=== PATIENT | male | born 1955 | race Hispanic/Latino ===

== ENCOUNTER 2021-05-30 12:11 | Emergency (ER) | payer SELFPAY ==
[2021-05-30 12:30] VITALS: BP 96/64
--- NOTE | 2021-05-30 13:04 | Emergency Department Report ---
ED Fall HPI - General Chief Complaint: Fall Stated Complaint: FALL Time Seen by Provider: 05/30/21 12:48 Source: patient Mode of arrival: Wheelchair Limitations: Physical Limitation - History of Present Illness Initial Comments: 65-year male with Parkinson's disease and hypertension presents to the hospital with complaints of neck pain for 5 days. Patient has a history of frequent falls for the past year secondary to Parkinson's disease. Patient states he ambulates with a walker and follows multiple times a day every day secondary to uncontrollable body movements. He states he was recently seen at a hospital in [facility] for pain with relief. 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 This is his [facility] visit to [facility]. As per [facility] his medications include glycopyrrolate 1 tab twice daily Lisinopril 5 mg daily Tamsulosin HCL 0.4 mg daily Sertraline HCl 100 mg daily Carbidopa/levodopa 25/102 tablets 4 times a day Clonazepam 0.5 mg nightly Amantadine HCL 100 mg twice daily Sildenafil citrate 1 tablet daily Tylenol #3 300-30 mg every 6 hours Patient states he is overdue for his carbidopa/ levodopa dose - Related Data Previous Rx's Medication Instructions Recorded Last Taken Type HYDROcodone/APAP 5-325 [Wellington 1 each PO Q6HR PRN #10 tablet 05/30/21 Unknown Rx 5/325] Allergies Allergy/AdvReac Type Severity Reaction Status Date / Time quetiapine [From Seroquel] Allergy Unknown Verified 05/30/21 12:59 ED Review of Systems ROS: Stated complaint: FALL Other details as noted in HPI Comment: All other systems reviewed and negative ED Past Medical Hx - Medications Home Medications: Home Medications Medication Instructions Recorded Confirmed Last Taken Type HYDROcodone/APAP 5-325 [Wellington 1 each PO Q6HR PRN #10 tablet 05/30/21 Unknown Rx 5/325] ED Physical Exam - General Limitations: Physical Limitation - Other Other exam information: General: No acute distress Head: Atraumatic, no hematoma Eyes: normal appearance ENT: Moist mucous membranes Neck: Normal appearance, cervical tenderness palpation. Voluntary movement particularly at the neck note Chest: Clear to auscultation bilaterally CV: Regular rate and rhythm Abdomen: Soft, normal bowel sounds, nontender, nondistended, no rebound or guarding Back: Normal inspection Extremity: Normal inspection, full range of motion, uncontrollable muscle movements noted Neuro: Alert O x 3, no facial asymmetry, speech clear, no gross motor sensory deficit Psych: Appropriate behavior Skin: Superficial abrasions to anterior knee ED Course Vital Signs 05/30/21 12:29 Temperature 98.4 F Pulse Rate 77 Respiratory 14 Rate Blood Pressure 96/64 [Right] O2 Sat by Pulse 99 Oximetry ED Medical Decision Making - Radiology Data Radiology results: report reviewed CT HEAD WITHOUT CONTRAST INDICATION / CLINICAL INFORMATION: fall, head injury. TECHNIQUE: All CT scans at this location are performed using CT dose reduction for ALARA by means of automated exposure control. COMPARISON: None available. Limitations: Patient was moving his head throughout the examination. Patient motion artifact is limiting factor on this study. FINDINGS: HEMORRHAGE: No evidence of intracranial hemorrhage or extra-axial fluid collection. EXTRA-AXIAL SPACES: Cortical sulci, sylvian fissures and basilar cisterns have an unremarkable appearance. VENTRICULAR SYSTEM: The third and lateral ventricles are of normal size and configuration. CEREBRAL PARENCHYMA: No areas of abnormal brain parenchymal attenuation are identified. There is no indication of recent infarction. MIDLINE SHIFT OR HERNIATION: There is no mass effect. CEREBELLUM / BRAINSTEM: Brainstem and cerebellum have an unremarkable appearance. MIDLINE STRUCTURES:No abnormalities of the pituitary gland or pineal region are identified. INTRACRANIAL VESSELS:No abnormalities are identified on this noncontrast head CT. ORBITS: visualized portions of the orbits have an unremarkable appearance. SOFT TISSUES of HEAD: No significant abnormality. CALVARIUM: Evaluation of bone windows reveals no abnormalities. PARANASAL SINUSES / MASTOID AIR CELLS: Evaluation is limited secondary to patient motion. IMPRESSION: 1. No acute intracranial abnormalities are identified on limited head CT examination CT CERVICAL SPINE WITHOUT CONTRAST INDICATION / CLINICAL INFORMATION: fall, head neck pain. TECHNIQUE: Axial CT images were obtained through the cervical spine. Sagittal and coronal reformatted images were produced. All CT scans at this location are performed using CT dose re duction for ALARA by means of automated exposure control. COMPARISON: None available. Limitations: Patient motion is a limiting factor on this examination. This impacts evaluation of the craniocervical junction and atlantoaxial junction. FINDINGS: ALIGNMENT: Mild levoscoliosis is noted at the thoracolumbar junction. VERTEBRAE: No indication of fracture. Widespread degenerative changes are present. DISC SPACES: Loss of disc height is a prominent finding at the C3-4, C5-6, C6-7 and C7-T1 levels. DEGENERATIVE CHANGES: Loss of disc height, anterior osteophyte and posterior osteophyte are present at C3-4, C5-6 and C6-7 levels. Facet and uncovertebral arthritic change contribute to bilateral foraminal stenosis at multiple levels. CRANIOCERVICAL JUNCTION:Evaluation is limited secondary to patient motion artifact. SPINAL CANAL: Central spinal canal is adequately maintained throughout. PARASPINAL SOFT TISSUES: No significant abnormality. LUNG APICES: No significant abnormality of visualized lungs. IMPRESSION: 1. Widespread cervical spondylosis. 2. No indication of actual traumatic subluxation. - Medical Decision Making 65-year male with Parkinson's and frequent falls secondary to involuntary muscle movements presents to the hospital complaining of neck pain for [address] h ead and CT cervical spine do not show acute injury. Patient treated with carbidopa/levodopa and Percocet in the ED with improvement. Patient will be giving a couple tablets of Wellington for more significant pain and then will be encouraged to continue his Tylenol with codeine as needed His prior to discharge patient states that he has run out of his Tylenol with Codeine and has not had any in 1 week. He was encouraged to follow-up with his doctor for a refill in his prescription Critical Care Time: No Critical care attestation.: If time is entered above; I have spent that time in minutes in the direct care of this critically ill patient, excluding procedure time. ED Disposition Clinical Impression: Parkinson disease, Frequent falls, Neck strain Disposition: 01 HOME / SELF CARE / HOMELESS Is pt being admited?: No Does the pt Need Aspirin: No Condition: Stable Instructions: Fall Prevention in the Home, Adult, [id number], Parkinson's Disease, Cervical Sprain Additional Instructions: Take the medication as prescribed. Do not take Wellington and Tylenol with codeine at the same time. You may take either one or the other as needed for pain. f ollow-up with your doctor or doctor/clinic provided. Return if symptoms worsen as indicated by your discharge instructions. Prescriptions: HYDROcodone/APAP 5-325 [Wellington 5/325] 1 each PO Q6HR PRN #10 tablet PRN Reason: Pain Referrals: PRIMARY CARE, [Primary Care Provider] - 3-5 Days Time of Disposition: 15:46
--- NOTE | 2021-05-30 13:54 | Cat Scan Report ---
CT HEAD WITHOUT CONTRAST INDICATION / CLINICAL INFORMATION: fall, head injury. TECHNIQUE: All CT scans at this location are performed using CT dose reduction for ALARA by means of automated e xposure control. COMPARISON: None available. Limitations: Patient was moving his head throughout the examination. Patient motion artifact is limit ing factor on this study. FINDINGS: HEMORRHAGE: No evidence of intracranial hemorrhage or extra-axial fluid collection. EXTRA-AXIAL SPACES: Cortical sulci, sylvian fissures and basilar cisterns have an unremarkable appear ance. VENTRICULAR SYSTEM: The third and lateral ventricles are of normal size and configuration. CEREBRAL PARENCHYMA: No areas of abnormal brain parenchymal attenuation are identified. There is no i ndication of recent infarction. MIDLINE SHIFT OR HERNIATION: There is no mass effect. CEREBELLUM / BRAINSTEM: Brainstem and cerebellum have an unremarkable appearance. MIDLINE STRUCTURES:No abnormalities of the pituitary gland or pineal region are identified. INTRACRANIAL VESSELS:No abnormalities are identified on this noncontrast head CT. ORBITS: visualized portions of the orbits have an unremarkable appearance. SOFT TISSUES of HEAD: No significant abnormality. CALVARIUM: Evaluation of bone windows reveals no abnormalities. PARANASAL SINUSES / MASTOID AIR CELLS: Evaluation is limited secondary to patient motion. IMPRESSION: 1. No acute intracranial abnormalities are identified on limited head CT examination. Signer Name: Juan Jose Bender MD Signed: 05/30/2021 1:49 PM Workstation Name: [id number]
--- NOTE | 2021-05-30 13:58 | Cat Scan Report ---
CT CERVICAL SPINE WITHOUT CONTRAST INDICATION / CLINICAL INFORMATION: fall, head neck pain. TECHNIQUE: Axial CT images were obtained through the cervical spine. Sagittal and coronal reformatted images wer e produced. All CT scans at this location are performed using CT dose reduction for ALARA by means of automated exposure control. COMPARISON: None available. Limitations: Patient motion is a limiting factor on this examination. This impacts evaluation of the craniocervical junction and atlantoaxial junction. FINDINGS: ALIGNMENT: Mild levoscoliosis is noted at the thoracolumbar junction. VERTEBRAE: No indication of fracture. Widespread degenerative changes are present. DISC SPACES: Loss of disc height is a prominent finding at the C3-4, C5-6, C6-7 and C7-T1 levels. DEGENERATIVE CHANGES: Loss of disc height, anterior osteophyte and posterior osteophyte are present a t C3-4, C5-6 and C6-7 levels. Facet and uncovertebral arthritic change contribute to bilateral forami nal stenosis at multiple levels. CRANIOCERVICAL JUNCTION:Evaluation is limited secondary to patient motion artifact. SPINAL CANAL: Central spinal canal is adequately maintained throughout. PARASPINAL SOFT TISSUES: No significant abnormality. LUNG APICES: No significant abnormality of visualized lungs. IMPRESSION: 1. Widespread cervical spondylosis. 2. No indication of actual traumatic subluxation. Signer Name: Juan Jose Bender MD Signed: 05/30/2021 1:54 PM Workstation Name: [id number]
[2021-05-30] MEDS ORDERED: CARBIDOPA/LEVODOPA 25-100 MG TAB PO ONE (14:00)
[2021-05-30] MEDS ORDERED: oxyCODONE /ACETAMINOPHEN 5-325MG TAB PO ONE (14:00)
== END 2021-05-30 15:55 | disposition home or self-care (01) ==
LOC: ED 12:11
DX: S16.1XXA Strain of muscle, fascia and tendon at neck level, initial encounter (principal); G20 Parkinson's disease; W18.30XA Fall on same level, unspecified, initial encounter; Y93.89 Activity, other specified; Y92.89 Other specified places as the place of occurrence of the external cause; Y99.8 Other external cause status
CPT/HCPCS: 70450; 72125; 99283